=== PATIENT | male | born 1975 | race African-American/Black ===

== ENCOUNTER 2017-12-03 10:56 | Inpatient (IN) | payer BC, OTHER, SELFPAY ==
[2017-12-03] MEDS ORDERED: Adacel (T-DAP) 0.5 ML VIAL ONE (11:09)
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
[2017-12-03] MEDS ORDERED: Lidocaine 1% w/Epinephrine 1:100K 20 ML VIAL ONE (11:31)
[2017-12-03] MEDS ORDERED: CEFAZOLIN/Water 2 GM/20 ML SYRINGE ONE (11:38)
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
[2017-12-03] MEDS ORDERED: Ketorolac Tromethamine 30 MG/ML VIAL ONE (12:14)
[2017-12-03 12:17] LABS: #Basophils 0.1 thou/uL (0.0-0.2); #Eosinphils 0.1 thou/uL (0.0-0.7); #Lymphocytes 1.8 thou/uL (1.20-3.40); #Monocytes 0.3 thou/uL (0.11-0.59); #Neutrophils 3.9 thou/uL (1.40-6.50); %Basophils 1.4 % (0.0-1.0); %Lymphocytes 29.4 % (21.0-51.0); %Monocytes 5.2 % (0.0-10.0); Hemoglobin 11.2 g/dL (14.0-18.0); INR-International Normal Ratio 1.1; Mean Corpuscular HGB CONC 30.5 g/dL (32.0-36.0); Mean Corpuscular Hemoglobin 22.1 pg (27.0-31.0); Mean Corpuscular Volume 72.4 fl (80.0-94.0); Mean Platelet Volume 6.9 fL (7.4-10.4); PTT 30.4 SEC (22.9-36.1); Platelet Count 295 thou/uL (130-400); Prothrombin Time 14.1 SEC (12.0-14.7); RBC Distribution Width 20.7 % (11.5-14.5); Red Blood Cell (RBC) Count 5.08 mill/uL (4.70-6.10); White Blood Cell (WBC) Count 6.3 thou/uL (4.8-10.8)
[2017-12-03 12:29] LABS: ALT (SGPT) 16 U/L (8-55); AST (SGOT) 19 U/L (5-34); Albumin 4.3 g/dL (3.5-5.0); Alkaline Phosphatase 69 U/L (40-150); Anion Gap 14 mmol/L (10-20); BUN (Urea Nitrogen) 7 mg/dL (8.9-20.6); Bilirubin, Total 0.5 mg/dL (0.2-1.2); Calc. Creatinine Clearance 0 mL/min (70-130); Calcium 9.3 mg/dL (7.8-10.44); Carbon Dioxide 24 mmol/L (22-29); Chloride 105 mmol/L (98-107); Estimated GFR-MDRD Greater than 90; Globulin 2.8 g/dL (2.4-3.5); Glucose 140 mg/dL (70-105); Potassium 3.7 mmol/L (3.5-5.1); Protein, Total 7.1 g/dL (6.0-8.3); Sodium 139 mmol/L (136-145)
[2017-12-03 12:33] LABS: Elliptocytes MARKED = >16 cells (100X) (0-1/hpf); Helmet Cells MODERATE= 6-15 cells (100X) (0-1/hpf); Microcytosis MODERATE=15-30 cells (100X) (0-5/hpf); Schistocytes SLIGHT = 2-5 cells (100X) (0-1/hpf)
[2017-12-03 12:34] LABS: Tear Drops SLIGHT = 2-5 cells (100X) (0-1/hpf)
[2017-12-03] MEDS ORDERED: Ibuprofen 800 MG TAB ONE (12:42)
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
[2017-12-03] MEDS ORDERED: Ondansetron HCl/PF 4 MG/2 ML Vial ONE ×2 (12:51→14:28)
[2017-12-03] MEDS ORDERED: ISOVUE-370 76%-LOCM 1 ML ONE (13:41)
[2017-12-03 14:49] LABS: Hemoglobin 8.5 g/dL (14.0-18.0)
[2017-12-03] MEDS ORDERED: Rib Fracture Protocol PO SCH (15:19)
[2017-12-03] MEDS ORDERED: Dextrose 50% Abboject 50 ML SYRINGE SLOW IVP PRN (15:19)
[2017-12-03] MEDS ORDERED: Ondansetron ODT 4 MG TAB PO PRN (15:19)
[2017-12-03] MEDS ORDERED: Promethazine HCl 25 MG/ML VIAL IM PRN ×2 (15:19)
[2017-12-03] MEDS ORDERED: Dextrose 5% in Water 1,000 ML IV PRN (15:19)
[2017-12-03] MEDS ORDERED: Ondansetron HCl/PF 4 MG/2 ML Vial IVP PRN (15:19)
[2017-12-03 15:50] VITALS: BMI 24.7
[2017-12-03 15:51] LABS: Hemoglobin 8.6 g/dL (14.0-18.0)
[2017-12-03] MEDS ORDERED: Cyclobenzaprine 10 MG TAB PO PRN (16:00)
[2017-12-03] MEDS: Sodium Chloride 0.9% 1,000 ML IV SCH ×2 (16:01→23:47)
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
[2017-12-03] MEDS: traMADol HCl 50 MG TAB PO SCH ×2 (17:57→23:45)
[2017-12-03] MEDS: Acetaminophen 500 MG TAB PO SCH ×2 (17:58→23:46)
[2017-12-03] MEDS: Ascorbic Acid 500 mg Chewable Tablet PO SCH (20:13)
[2017-12-03] MEDS: Gabapentin 300 MG CAP PO SCH (20:13)
[2017-12-03] MEDS: Famotidine 20 MG TAB PO SCH (20:13)
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
[2017-12-03] MEDS: Ibuprofen 800 MG TAB PO SCH (21:41)
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
[2017-12-04] MEDS: Ibuprofen 800 MG TAB PO SCH ×2 (05:28→14:42)
[2017-12-04] MEDS: traMADol HCl 50 MG TAB PO SCH ×2 (05:28→12:07)
[2017-12-04] MEDS: Acetaminophen 500 MG TAB PO SCH ×2 (05:28→12:11)
[2017-12-04 06:17] LABS: #Lymphocytes 2.7 thou/uL (1.20-3.40); #Monocytes 0.6 thou/uL (0.11-0.59); #Neutrophils 5.2 thou/uL (1.40-6.50); %Basophils 0.1 % (0.0-1.0); %Eosinophils 0.4 % (0.0-10.0); %Lymphocytes 31.4 % (21.0-51.0); %Monocytes 7.1 % (0.0-10.0); Acanthocytes SLIGHT = 1-5 cells (100X) (None Seen); Anisocytosis MODERATE=16-30 cells (100X) (0-5/hpf); Elliptocytes MODERATE= 6-15 cells (100X) (0-1/hpf); MDiff Complete? YES; Mean Corpuscular HGB CONC 32.3 g/dL (32.0-36.0); Mean Corpuscular Hemoglobin 24.6 pg (27.0-31.0); Mean Corpuscular Volume 76.2 fl (80.0-94.0); Mean Platelet Volume 5.9 fL (7.4-10.4); Microcytosis SLIGHT = 6-15 cells (100X) (0-5/hpf); PLT Morphology Comment Appears Adequate; Platelet Count 193 thou/uL (130-400); Poikilocytosis SLIGHT = 6-15 cells (100X) (0-5/hpf); RBC Distribution Width 22.6 % (11.5-14.5); Red Blood Cell (RBC) Count 2.84 mill/uL (4.70-6.10); Schistocytes SLIGHT = 2-5 cells (100X) (0-1/hpf); White Blood Cell (WBC) Count 8.5 thou/uL (4.8-10.8)
[2017-12-04 06:25] LABS: Anion Gap 7 mmol/L (10-20); BUN (Urea Nitrogen) 9 mg/dL (8.9-20.6); Calc. Creatinine Clearance 116 mL/min (70-130); Calcium 7.6 mg/dL (7.8-10.44); Carbon Dioxide 24 mmol/L (22-29); Chloride 109 mmol/L (98-107); Estimated GFR-MDRD Greater than 90; Glucose 94 mg/dL (70-105); Magnesium 1.8 mg/dL (1.6-2.6); Potassium 3.9 mmol/L (3.5-5.1); Sodium 136 mmol/L (136-145)
[2017-12-04] MEDS ORDERED: Ferrous Sulfate 325 MG TAB PO SCH (08:00)
[2017-12-04] MEDS ORDERED: Lidocaine 1% (PF) 30 ML VIAL ONE (08:41)
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
[2017-12-04] MEDS: Ascorbic Acid 500 mg Chewable Tablet PO SCH (09:29)
[2017-12-04] MEDS: Gabapentin 300 MG CAP PO SCH ×2 (09:29→14:42)
[2017-12-04] MEDS: Famotidine 20 MG TAB PO SCH (09:29)
[2017-12-04] MEDS: Sodium Chloride 0.9% 1,000 ML IV SCH (09:30)
[2017-12-04 12:17] VITALS: BP 110/71; TEMP 98.4
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
== END 2017-12-04 16:48 | disposition home or self-care (01) | DRG 605 ==
LOC: ERS 10:56 → SURG B 13:04
PROVIDERS: ADMIT Specialist; ATTEND Specialist
PROC: 30233N1 Transfusion of Nonautologous Red Blood Cells into Peripheral Vein, Percutaneous Approach (ICD-10-PCS; principal; 2017-12-03)
PROC: 09Q0XZZ Repair Right External Ear, External Approach (ICD-10-PCS; 2017-12-03)
PROC: 0HQ0XZZ Repair Scalp Skin, External Approach (ICD-10-PCS; 2017-12-03)
DX: S01.01XA Laceration without foreign body of scalp, initial encounter (principal); S27.321A Contusion of lung, unilateral, initial encounter; S32.018A Other fracture of first lumbar vertebra, initial encounter for closed fracture; S22.41XA Multiple fractures of ribs, right side, initial encounter for closed fracture; S32.028A Other fracture of second lumbar vertebra, initial encounter for closed fracture; S32.038A Other fracture of third lumbar vertebra, initial encounter for closed fracture; S32.048A Other fracture of fourth lumbar vertebra, initial encounter for closed fracture; S01.91XA Laceration without foreign body of unspecified part of head, initial encounter; S01.311A Laceration without foreign body of right ear, initial encounter; D50.0 Iron deficiency anemia secondary to blood loss (chronic); I10 Essential (primary) hypertension; S01.81XA Laceration without foreign body of other part of head, initial encounter; F17.210 Nicotine dependence, cigarettes, uncomplicated
CPT/HCPCS: 36415; 36430; 70450; 71045; 71260; 72125; 72170; 74177; 80048; 80053; 80307; 82533; 83735; 84100; 85025; 85060; 85610; 85730; 86850; 86900; 86901; 90471; 90715; 94640; 94760; 96361; 96374; 96375; 96376; G0390; G8978-GP-CI; G8979-GP-CI; G8980-GP-CI; G8987-GO-CI; G8988-GO-CI; G8989-GO-CI; J1885; J2001; J2270; J2405; J7620; P9016